=== PATIENT | female | born 1980 | race American Indian/Alaskan Native ===

== ENCOUNTER 2017-11-06 22:14 | Inpatient (IN) | payer MEDICAID ==
[2017-11-06 22:53] LABS: Hematocrit 35.4 % (30.3-42.9); Mean Corpuscular HGB Conc 34 % (30-34); Mean Corpuscular Hemoglobin 27 pg (28-32); Mean Corpuscular Volume 79 fl (79-97); Platelet Count 251 K/mm3 (140-440); Red Blood Count 4.49 M/mm3 (3.65-5.03); Red Cell Distribution Width 14.1 % (13.2-15.2)
[2017-11-06 23:01] LABS: Basophils % (Auto) 0.1 % (0.0-1.8); Lymphocytes # (Auto) 0.7 K/mm3 (1.2-5.4); Lymphocytes % (Auto) 7.1 % (13.4-35.0); Monocytes % (Auto) 10.3 % (0.0-7.3)
[2017-11-06 23:03] LABS: BUN/Creatinine Ratio 20; Blood Urea Nitrogen 14 mg/dL (7-17); Calcium 8.9 mg/dL (8.4-10.2); Hemolysis Index 0
--- NOTE | 2017-11-06 23:21 | XRay Report ---
FINAL REPORT PROCEDURE: XR CHEST 1V AP TECHNIQUE: Chest radiograph anteroposterior view. CPT 34476 HISTORY: Shortness of breath COMPARISON: No prior studies are available for comparison. FINDINGS: Heart: Normal. Mediastinum/Vessels: Normal. Lungs/Pleural space: Infiltrate in the right lower lung. No effusion or pneumothorax. Bony thorax: No acute osseous abnormality. Life support devices: None. IMPRESSION: Mild right lower lung infiltrate.
[2017-11-06] MEDS ORDERED: NACL 0.9% 1000 ML 1,000 ML IV ONE (23:31)
[2017-11-06] MEDS ORDERED: MORPHINE IV ONE (23:31)
[2017-11-06] MEDS ORDERED: ZITHROMAX 500 MG in NACL 0.9% 250ML 250 ML IV ONE (23:31)
[2017-11-07 00:39] LABS: Bilirubin,Urine SM (Negative); Blood,Urine SM (Negative); Color,Urine Amber (Yellow); Mucus,Urine 3+ /HPF
[2017-11-07 01:05] LABS: Ictotest,Urine Negative (Negative)
--- NOTE | 2017-11-07 01:23 | Cat Scan Report ---
FINAL REPORT PROCEDURE: CT ANGIO CHEST TECHNIQUE: Computerized tomographic angiography of the chest was performed after the IV injection of iodinated nonionic contrast including image processing. The image data was postprocessed using 2-dimensional multiplanar reformatted (MPR) and 3-dimensional (MIP and/or volume rendered) techniques. HISTORY: SOB, back pain, rib pain, S/P leg fracture COMPARISON: No prior studies are available for comparison. FINDINGS: Heart and pericardium: Normal. Thoracic aorta: Normal. Pulmonary vasculature: There is pulmonary arterial emboli identified in the right main pulmonary artery extending into the segmental and subsegmental branches of the upper and lower right arterial branches. Left pulmonary arterial structures opacified without emboli. No saddle embolus is identified.. Lymph nodes: No enlarged thoracic lymph nodes. Lungs: There is atelectasis with possible scattered infiltrate in the right lower and midlung. Slight atelectasis left lower lung. The central airway is patent.. Pleural space: No effusion, thickening, or pneumothorax. Musculoskeletal structures: No significant abnormality. Upper abdominal structures: No significant abnormality. IMPRESSION: Pulmonary arterial emboli identified in the right main pulmonary artery extending into the segmental and subsegmental branches of the upper lower right arterial structures. Atelectasis with possible infiltrate identified in the right lower and midlung. Slight atelectasis left lower lung. The above findings are discussed with the patient's ER physician Dr. Nagy at the time of dictation 01:15 Eastern standard time on 11/07/2017
[2017-11-07] MEDS ORDERED: HEPARIN 10,000 UNITS/10 ML IV ONE (01:39)
--- NOTE | 2017-11-07 02:16 | Emergency Department Report ---
HPI - General Chief Complaint: Dyspnea/Respdistress Time Seen by Provider: 11/06/17 23:22 - HPI HPI: Physical -[place] female presents to emergency department complaint of a 2-3 day history of some pain to the right side of the rib cage with some radiation towards the back and some shortness of breath. The patient's discomfort appears to increase with deep breathing and certain movements of her torso. Patient recently broke her left leg 2 weeks ago and has a cast on there and has been using crutches and has been nonweightbearing to the left lower extremity. She went to [facility] at that time for the leg fracture. She has a past medical history of hypertension and lupus. She has not been taking anything for her symptoms prior to presentation. She is a daily smoker. She denies any fever, nausea, vomiting, diaphoresis. ED Past Medical Hx - Past Medical History Previous Medical History?: Yes Hx Hypertension: Yes Additional medical history: Lupus - Surgical History Past Surgical History?: Yes Additional Surgical History: Tonsillectomy - Social History Smoking Status: Current Every Day Smoker - Medications Home Medications: Home Medications Medication Instructions Recorded Confirmed Last Taken Type OXcarbazepine [Oxtellar XR] 150 mg PO BID 11/07/17 11/07/17 Unknown History Ziprasidone HCl [Geodon] 80 mg PO BID 11/07/17 11/07/17 Unknown History hydrOXYZINE PAMOATE [Hydroxyzine 50 mg PO TID 11/07/17 11/07/17 Unknown History Pamoate] risperiDONE [Risperdal] 4 mg PO QHS 11/07/17 11/07/17 Unknown History traZODone [Desyrel] 100 mg PO QHS 11/07/17 11/07/17 Unknown History ED Review of Systems ROS: Stated complaint: RIGHT SIDE/RIB PAIN, ANTHONY Other details as noted in HPI Comment: All other systems reviewed and negative Constitutional: denies: chills, fever Eyes: denies: eye pain, eye discharge, vision change ENT: denies: ear pain, throat pain Respiratory: shortness of breath. denies: cough Cardiovascular: denies: palpitations, edema Gastrointestinal: denies: abdominal pain, nausea, diarrhea Genitourinary: denies: hematuria, discharge Musculoskeletal: back pain. denies: arthralgia Skin: denies: rash, lesions Neurological: denies: headache, weakness, paresthesias Physical Exam - Physical Exam Vital Signs: Vital Signs 11/06/17 11/06/17 22:25 23:00 Temperature 98.2 F Pulse Rate 120 H 126 H Respiratory 24 22 Rate Blood Pressure 128/91 Blood Pressure 140/78 [Left] O2 Sat by Pulse 96 94 Oximetry Physical Exam: GENERAL: The patient is well-developed well-nourished. HENT: Normocephalic. Atraumatic. Patient has moist mucous membranes. EYES: Extraocular motions are intact. Pupils equal reactive to light bilaterally. NECK: Supple. Trachea is midline. CHEST/LUNGS: Clear to auscultation. There is no respiratory distress noted. The right-sided rib pain is not reproducible to palpation. HEART/CARDIOVASCULAR: Regular. There is moderate tachycardia. There is no murmur. ABDOMEN: Abdomen is soft, nontender. Patient has normal bowel sounds. There is no abdominal distention. SKIN: Skin is warm and dry. NEURO: The patient is awake, alert, and oriented. The patient is cooperative. The patient has no focal neurologic deficits. The patient has normal speech.. MUSCULOSKELETAL: The left lower leg is currently in a cast. The other 3 extremities are nontender to palpation and do not have any obvious deformities. ED Course Vital Signs 11/06/17 11/06/17 22:25 23:00 Temperature 98.2 F Pulse Rate 120 H 126 H Respiratory 24 22 Rate Blood Pressure 128/91 Blood Pressure 140/78 [Left] O2 Sat by Pulse 96 94 Oximetry ED Medical Decision Making - Lab Data Result diagrams: 11/06/17 22:33 11/06/17 22:33 - EKG Data -: EKG Interpreted by Me EKG shows normal: sinus rhythm, axis, intervals, QRS complexes, ST-T waves Rate: tachycardia (123 bpm) - EKG Data When compared to previous EKG there are: previous EKG unavailable Interpretation: other (sinus tachycardia) - Radiology Data Radiology results: report reviewed, image reviewed interpreted by me: Chest x-ray does not show any acute process. There are no pleural effusions, obvious pneumonia and there is no pneumothorax. PROCEDURE: CT ANGIO CHEST TECHNIQUE: Computerized tomographic angiography of the chest was performed after the IV injection of iodinated nonionic contrast including image processing. The image data was postprocessed using 2-dimensional multiplanar reformatted (MPR) and 3-dimensional (MIP and/or volume rendered) techniques. HISTORY: SOB, back pain, rib pain, S/P leg fracture COMPARISON: No prior studies are available for comparison. FINDINGS: Heart and pericardium: Normal. Thoracic aorta: Normal. Pulmonary vasculature: There is pulmonary arterial emboli identified in the right main pulmonary artery extending into the segmental and subsegmental branches of the upper and lower right arterial branches. Left pulmonary arterial structures opacified without emboli. No saddle embolus is identified.. Lymph nodes: No enlarged thoracic lymph nodes. Lungs: There is atelectasis with possible scattered infiltrate in the right lower and midlung. Slight atelectasis left lower lung. The central airway is patent.. Pleural space: No effusion, thickening, or pneumothorax. Musculoskeletal structures: No significant abnormality. Upper abdominal structures: No significant abnormality. IMPRESSION: Pulmonary arterial emboli identified in the right main pulmonary artery extending into the segmental and subsegmental branches of the upper lower right arterial structures. Atelectasis with possible infiltrate identified in the right lower and midlung. Slight atelectasis left lower lung. The above findings are discussed with the patient's ER physician Dr. Nagy at the time of dictation 01:15 Eastern standard time on 11/07/2017 Transcribed By: [facility] Dictated By: SNEHAL ALICEA MD Electronically Authenticated By: SNEHAL ALICEA MD Signed Date/Time: 11/07/17 0118 - Medical Decision Making Patient presents with some right-sided rib pain, back pain, shortness of breath and presents with some tachycardia on the past few days. The patient is nonweightbearing to the left lower extremity and is in a cast secondary to a leg fracture. With her symptoms and the recent fracture, the concern I had was for a pulmonary embolism. blood work was unremarkable. A CT angiogram of the chest was done that shows a right main pulmonary artery embolism that extends into the segmental and subsegmental branches. Patient placed on a heparin drip and will be admitted to hospital for further evaluation and treatment. She was accepted for admission by the hospitalist, Dr. Dahl. - Differential Diagnosis costochondritis, pulmonary embolism, pneumonia Critical Care Time: No Critical care attestation.: If time is entered above; I have spent that time in minutes in the direct care of this critically ill patient, excluding procedure time. ED Disposition Clinical Impression: Pulmonary embolism Qualifiers: Pulmonary embolism type: other Chronicity: acute Acute cor pulmonale presence: without acute cor pulmonale Qualified Code(s): I26.99 - Other pulmonary embolism without acute cor pulmonale UTI (urinary tract infection) Qualifiers: Urinary tract infection type: acute cystitis Hematuria presence: with hematuria Qualified Code(s): N30.01 - Acute cystitis with hematuria Disposition: OP ADMIT IP TO THIS HOSP Is pt being admited?: Yes Condition: Fair Referrals: PRIMARY CAREMD [Primary Care Provider] - 3-5 Days Time of Disposition: 02:16
[2017-11-07] MEDS ORDERED: ZOFRAN IV PRN (02:24)
[2017-11-07] MEDS ORDERED: TYLENOL PO PRN (02:24)
[2017-11-07] MEDS ORDERED: SODIUM CHLORIDE FLUSH SYRINGE 10 ML IV PRN (02:24)
[2017-11-07] MEDS ORDERED: PROVENTIL IH PRN (02:24)
--- NOTE | 2017-11-07 02:27 | History and Physical Report ---
History of Present Illness Date of examination: 11/07/17 History of present illness: 37-year-old woman history of lupus, hypertension, status post fracture of the left foot 2 weeks ago comes emergency room with complaints of pain in her right ribs and back. These symptoms started 3 days ago, she described the pain as sharp, worse with movement and when she tries to take a deep breath, intermittent, for a few seconds, intensity 7/10, no radiation. Complaining of nonproductive cough Review of systems Constitutional: no weight loss, chills, fever Ears, eyes, nose, mouth and throat: no nasal congestion, no nasal discharge, no sinus pressure, no vision change, no red eye. Neck: No neck pain or rigidity. Cardiovascular: no chest pain, palpitations Respiratory:+ cough, shortness of breath Gastrointestinal: no abdominal pain hematochezia Genitourinary : no frequency , no hematuria Musculoskeletal: no joint swelling or muscle ache Integumentary: no rash, no pruritis Neurological: no parathesias, no numbness, no focal weakness Endocrine: no cold or heat intolerance, no polyuria or polydipsia Hematologic/Lymphatic: no easy bruising, no easy bleeding, no gland swelling Allergic/Immunologic: no urticaria, no angioedema. PAST MEDICAL HISTORY Lupus, hypertension PAST SURGICAL HISTORY: None SOCIAL HISTORY: Smoked 2 cigarettes a day, daily marijuana use, alcohol use FAMILY HISTORY: Hypertension Medications and Allergies Allergies Allergy/AdvReac Type Severity Reaction Status Date / Time amoxicillin Allergy Itching Verified 11/06/17 22:17 Penicillins Allergy Itching Verified 11/06/17 22:17 Home Medications Medication Instructions Recorded Confirmed Last Taken Type OXcarbazepine [Oxtellar XR] 150 mg PO BID 11/07/17 11/07/17 Unknown History Ziprasidone HCl [Geodon] 80 mg PO BID 11/07/17 11/07/17 Unknown History hydrOXYZINE PAMOATE [Hydroxyzine 50 mg PO TID 11/07/17 11/07/17 Unknown History Pamoate] risperiDONE [Risperdal] 4 mg PO QHS 11/07/17 11/07/17 Unknown History traZODone [Desyrel] 100 mg PO QHS 11/07/17 11/07/17 Unknown History Active Meds: Active Medications Heparin Sodium/Sodium Chloride (Heparin/ 0.45% Nacl-25,000 Unit/500 Ml) 25,000 unit in 500 mls @ 29 mls/hr IV TITR MARY; Protocol Exam - Physical Exam Narrative exam: Gen. appearance: Patient lying in bed, no apparent distress HEENT: Normocephalic, atraumatic, pupils equally round and reactive to light, eyes are , extraocular movement intact, and no sclericterus,. No JVD or thyromegaly or nodule,neck supple, no carotid bruit ,mucous membranes moist, no exudate or erythema Heart: S1, S2, regular rate and rhythm Lungs: Clear bilaterally, breathing comfortable Abdomen: Left leg in a splint, Positive bowel sounds, non-tender, nondistended, no organomegaly Extremity:no edema cyanosis, clubbing Skin: no rash, dry, warm Neuro: Oriented 3, cranial nerves II-12 intact, speech is fluent, motor and sensory intact - Constitutional Vitals: Temp Pulse Resp BP Pulse Ox 98.2 F 126 H 22 128/91 94 11/06/17 22:25 11/06/17 23:00 11/06/17 23:00 11/06/17 23:00 11/06/17 23:00 Results - Labs CBC & Chem 7: 11/06/17 22:33 11/06/17 22:33 Labs: Abnormal lab results 11/06/17 11/06/17 11/06/17 Range/Units 22:33 22:33 23:02 MCH 27 L (28-32) pg Lymph % (Auto) 7.1 L (13.4-35.0) % [place] % (Auto) 10.3 H (0.0-7.3) % Lymph # 0.7 L (1.2-5.4) K/mm3 [place] # 1.0 H (0.0-0.8) K/mm3 Seg Neutrophils % 82.5 H (40.0-70.0) % Seg Neutrophils # 7.8 H (1.8-7.7) K/mm3 Sodium 134 L (137-145) mmol/L Chloride 91.8 L (98-107) mmol/L Glucose 104 H (65-100) mg/dL Ur Specific [place] 1.032 H (1.003-1.030) Urine WBC (Auto) 29.0 H (0.0-6.0) /HPF - Imaging and Cardiology EKG: image reviewed Chest x-ray: report reviewed CT scan - chest: report reviewed Assessment and Plan Assessment Acute pulmonary emboli Pneumonia UTI Left foot fracture Plan Admit to medicine Continue heparin drip, monitor serial hemoglobin, PT/INR Start IV Levaquin, follow cultures, check Doppler of lower extremity DVT prophylaxis, IV morphine
[2017-11-07] MEDS: HEPARIN/ 0.45% NACL-25,000 UNIT/500 ML 25,000 UNIT/500 ML BAG IV SCH ×2 (02:30→23:06)
[2017-11-07 02:34] LABS: INR 1.14 (0.87-1.13); Partial Thromboplastin Time 32.9 Sec. (24.2-36.6)
[2017-11-07] MEDS: MORPHINE IV PRN ×2 (05:14→10:35)
[2017-11-07] MEDS: LEVAQUIN 750MG/150ML 750 MG/150 ML BAG IV SCH ×2 (05:17→10:35)
[2017-11-07] MEDS: SODIUM CHLORIDE FLUSH SYRINGE 10 ML IV SCH ×2 (10:36→23:18)
[2017-11-07] MEDS ORDERED: PHENERGAN PR PRN (16:43)
[2017-11-07] MEDS: DILAUDID IV PRN ×2 (18:19→23:07)
[2017-11-07] MEDS: ZOFRAN IV PRN ×2 (18:20→23:17)
[2017-11-07] MEDS ORDERED: DESYREL PO ONE (22:32)
[2017-11-07] MEDS ORDERED: RESTORIL PO NR (23:00)
[2017-11-08] MEDS: DILAUDID IV PRN ×3 (05:10→20:35)
[2017-11-08 05:40] LABS: Basophils % (Auto) 0.1 % (0.0-1.8); Hematocrit 34.8 % (30.3-42.9); Hemoglobin 11.3 gm/dl (10.1-14.3); Lymphocytes % (Auto) 6.4 % (13.4-35.0); Mean Corpuscular HGB Conc 33 % (30-34); Mean Corpuscular Hemoglobin 26 pg (28-32); Mean Corpuscular Volume 80 fl (79-97); Monocytes # (Auto) 1.7 K/mm3 (0.0-0.8); Monocytes % (Auto) 10.4 % (0.0-7.3); Platelet Count 315 K/mm3 (140-440); Red Blood Count 4.35 M/mm3 (3.65-5.03); Red Cell Distribution Width 14.5 % (13.2-15.2)
[2017-11-08 06:02] LABS: BUN/Creatinine Ratio 19; Blood Urea Nitrogen 13 mg/dL (7-17); Calcium 9.2 mg/dL (8.4-10.2); Hemolysis Index 4
[2017-11-08] MEDS ORDERED: HEPARIN IV ONE (06:37)
[2017-11-08] MEDS ORDERED: HEPARIN 10,000 UNITS/10 ML IV NR (07:00)
[2017-11-08] MEDS: LEVAQUIN 750MG/150ML 750 MG/150 ML BAG IV SCH (10:23)
--- NOTE | 2017-11-08 11:35 | Progress Note ---
Assessment and Plan Assessment and plan: 37-year-old woman history of lupus, hypertension, status post fracture of the left foot 2 weeks ago comes emergency room with complaints of pain in her right ribs and back. These symptoms started 3 days ago, she described the pain as sharp, worse with movement and when she tries to take a deep breath, intermittent, for a few seconds, intensity 7/10, no radiation. Complaining of nonproductive cough CTA chest Pulmonary arterial emboli identified in the right main pulmonary artery extending into the segmental and subsegmental branches of the upper lower right arterial structures. VL LE dopplers No evidence of acute or chronic deep venous thrombosis in either lower extremity. A technical limitation was noted in the left lower extremity. There is a cast below the left knee which obscures visualization of the distal left lower extremity. Acute pulmonary emboli Pneumonia UTI Left foot fracture SLE flare Plan continue anticoagulant, Abx, LLE already splinted -start steroids, as suspect sle flare Needs to establish with an outpatient doffer History Interval history: Review of systems Constitutional: No fevers, no malaise, no joint pains CVS: c.o pleuritc CP which is in her ribs, no orthpnea, no pedal edema, GI: No abdominal pain, no diarrhea, no vomiting, no constipation Respiratory: mild sob, no wheezing, no coughing Hospitalist Physical - Physical exam Narrative exam: General.: Appears well, no distress, nontoxic HEENT: Moist mucous membranes, extraocular muscles intact, no lymphadenopathy Neck: supple Cardiac: S1-S2 heard Lungs: clear to auscultation bilaterally Abdomen: soft , nontender, nondistended, bowel sounds positive Extremities: no edema clubbing or cyanosis Skin: no rash or lesions Neurologic: no gross focal deficits Psych: appropriate behavior, appropriate mood, corporative, judgment intact - Constitutional Vitals: Temp Pulse Resp BP Pulse Ox 100.1 F H 133 H 18 153/93 78 L 11/08/17 07:33 11/08/17 07:33 11/08/17 09:20 11/08/17 07:33 11/08/17 07:33 Results - Labs CBC & Chem 7: 11/08/17 05:01 11/08/17 05:01 Labs: Laboratory Last Values WBC 16.1 K/mm3 (4.5-11.0) H 11/08/17 05:01 RBC 4.35 M/mm3 (3.65-5.03) 11/08/17 05:01 Hgb 11.3 gm/dl (10.1-14.3) 11/08/17 05:01 Hct 34.8 % (30.3-42.9) 11/08/17 05:01 MCV 80 fl (79-97) 11/08/17 05:01 MCH 26 pg (28-32) L 11/08/17 05:01 MCHC 33 % (30-34) 11/08/17 05:01 RDW 14.5 % (13.2-15.2) 11/08/17 05:01 Plt Count 315 K/mm3 (140-440) 11/08/17 05:01 Lymph % (Auto) 6.4 % (13.4-35.0) L 11/08/17 05:01 [place] % (Auto) 10.4 % (0.0-7.3) H 11/08/17 05:01 Eos % (Auto) 0.0 % (0.0-4.3) 11/08/17 05:01 Baso % (Auto) 0.1 % (0.0-1.8) 11/08/17 05:01 Lymph # 1.0 K/mm3 (1.2-5.4) L 11/08/17 05:01 [place] # 1.7 K/mm3 (0.0-0.8) H 11/08/17 05:01 Eos # 0.0 K/mm3 (0.0-0.4) 11/08/17 05:01 Baso # 0.0 K/mm3 (0.0-0.1) 11/08/17 05:01 Seg Neutrophils % 83.1 % (40.0-70.0) H 11/08/17 05:01 Seg Neutrophils # 13.4 K/mm3 (1.8-7.7) H 11/08/17 05:01 PT 15.2 Sec. (12.2-14.9) H 11/07/17 01:54 INR 1.14 (0.87-1.13) H 11/07/17 01:54 APTT 32.9 Sec. (24.2-36.6) 11/07/17 01:54 Heparin Anti-Xa Level < 0.10 U.I./ml (0.3-0.7) L 11/08/17 05:01 Sodium 138 mmol/L (137-145) 11/08/17 05:01 Potassium 4.0 mmol/L (3.6-5.0) 11/08/17 05:01 Chloride 94.9 mmol/L (98-107) L 11/08/17 05:01 Carbon Dioxide 28 mmol/L (22-30) 11/08/17 05:01 Anion Gap 19 mmol/L 11/08/17 05:01 BUN 13 mg/dL (7-17) 11/08/17 05:01 Creatinine 0.7 mg/dL (0.7-1.2) 11/08/17 05:01 Estimated GFR > 60 ml/min 11/08/17 05:01 BUN/Creatinine Ratio 19 % 11/08/17 05:01 Glucose 100 mg/dL (65-100) 11/08/17 05:01 Calcium 9.2 mg/dL (8.4-10.2) 11/08/17 05:01 Troponin T < 0.010 ng/mL (0.00-0.029) 11/06/17 22:33 HCG, Qual Negative (Negative) 11/06/17 22:33 Urine Color [place] (Yellow) 11/06/17 23:02 Urine Turbidity Hazy (Clear) 11/06/17 23:02 Urine pH 5.0 (5.0-7.0) 11/06/17 23:02 Ur Specific [place] 1.032 (1.003-1.030) H 11/06/17 23:02 Urine Protein 100 mg/dl mg/dL (Negative) 11/06/17 23:02 Urine Glucose (UA) Neg mg/dL (Negative) 11/06/17 23:02 Urine Ketones 20 mg/dL (Negative) 11/06/17 23:02 Urine Blood Sm (Negative) 11/06/17 23:02 Urine Nitrite Neg (Negative) 11/06/17 23:02 Urine Bilirubin Sm (Negative) 11/06/17 23:02 Urine Ictotest Negative (Negative) 11/06/17 23:02 Urine Urobilinogen 4.0 mg/dL (<2.0) 11/06/17 23:02 Ur Leukocyte Esterase Sm (Negative) 11/06/17 23:02 Urine WBC (Auto) 29.0 /HPF (0.0-6.0) H 11/06/17 23:02 Urine RBC (Auto) 23.0 /HPF (0.0-6.0) 11/06/17 23:02 U Epithel Cells (Auto) 1.0 /HPF (0-13.0) 11/06/17 23:02 Urine Mucus 3+ /HPF 11/06/17 23:02
--- NOTE | 2017-11-08 12:00 | Vascular Lab Report ---
LOWER EXTREMITY VENOUS DUPLEX: REASON FOR EXAM: Deep venous thrombosis. COMMENTS ON THE RIGHT: All veins visualized are freely compressible without evidence of internal echogenicity. Flow is spontaneous and phasic throughout. COMMENTS ON THE LEFT: All veins visualized are freely compressible without evidence of internal echogenicity. Flow is spontaneous and phasic throughout. Been below the knee area is obscured by a cast. IMPRESSION: No evidence of acute or chronic deep venous thrombosis in either lower extremity. A technical limitation was noted in the left lower extremity. There is a cast below the left knee which obscures visualization of the distal left lower extremity.
[2017-11-08] MEDS: PROTONIX PO SCH (15:59)
[2017-11-08] MEDS: ELIQUIS PO SCH ×2 (15:59→22:13)
[2017-11-08] MEDS: SODIUM CHLORIDE FLUSH SYRINGE 10 ML IV SCH ×2 (16:00→22:14)
[2017-11-08] MEDS: REGLAN IV PRN (20:35)
[2017-11-08] MEDS: RESTORIL PO PRN (23:40)
[2017-11-09] MEDS: DILAUDID IV PRN ×4 (06:01→23:59)
[2017-11-09 06:13] LABS: Hemoglobin 10.8 gm/dl (10.1-14.3)
[2017-11-09] MEDS: ELIQUIS PO SCH ×2 (10:34→21:31)
[2017-11-09] MEDS: REGLAN IV PRN (10:35)
[2017-11-09] MEDS: PROTONIX PO SCH (10:37)
[2017-11-09] MEDS: LEVAQUIN 750MG/150ML 750 MG/150 ML BAG IV SCH (10:37)
[2017-11-09] MEDS: SODIUM CHLORIDE FLUSH SYRINGE 10 ML IV SCH ×2 (10:38→21:31)
[2017-11-09] MEDS: GUAIFENESIN DM SYRUP PO PRN (18:41)
[2017-11-09] MEDS: ZOFRAN IV PRN ×2 (18:43→23:59)
--- NOTE | 2017-11-09 19:58 | Progress Note ---
Assessment and Plan Assessment and plan: 37-year-old woman history of lupus, hypertension, status post fracture of the left foot 2 weeks ago comes emergency room with complaints of pain in her right ribs and back. These symptoms started 3 days ago, she described the pain as sharp, worse with movement and when she tries to take a deep breath, intermittent, for a few seconds, intensity 7/10, no radiation. Complaining of nonproductive cough CTA chest Pulmonary arterial emboli identified in the right main pulmonary artery extending into the segmental and subsegmental branches of the upper lower right arterial structures. VL LE dopplers No evidence of acute or chronic deep venous thrombosis in either lower extremity. A technical limitation was noted in the left lower extremity. There is a cast below the left knee which obscures visualization of the distal left lower extremity. Acute pulmonary emboli Pneumonia UTI Left foot fracture SLE flare Plan continue anticoagulant, Abx, LLE already splinted -start steroids, as suspect sle flare Needs to establish with an outpatient dishwasher busser History Interval history: Review of systems Constitutional: No fevers, no malaise, no joint pains CVS: c.o pleuritc CP which is in her ribs, no orthpnea, no pedal edema, GI: No abdominal pain, no diarrhea, no vomiting, no constipation Respiratory: mild sob, no wheezing, no coughing Hospitalist Physical - Physical exam Narrative exam: General.: Appears well, no distress, nontoxic HEENT: Moist mucous membranes, extraocular muscles intact, no lymphadenopathy Neck: supple Cardiac: S1-S2 heard Lungs: clear to auscultation bilaterally Abdomen: soft , nontender, nondistended, bowel sounds positive Extremities: no edema clubbing or cyanosis Skin: no rash or lesions Neurologic: no gross focal deficits Psych: appropriate behavior, appropriate mood, corporative, judgment intact - Constitutional Vitals: Temp Pulse Resp BP Pulse Ox 97.3 F L 106 H 20 117/89 96 11/09/17 16:00 11/09/17 17:04 11/09/17 17:04 11/09/17 17:04 11/09/17 17:04 Results - Labs CBC & Chem 7: 11/09/17 05:09 11/08/17 05:01 Labs: Laboratory Last Values WBC 16.1 K/mm3 (4.5-11.0) H 11/08/17 05:01 RBC 4.35 M/mm3 (3.65-5.03) 11/08/17 05:01 Hgb 10.8 gm/dl (10.1-14.3) 11/09/17 05:09 Hct 33.0 % (30.3-42.9) 11/09/17 05:09 MCV 80 fl (79-97) 11/08/17 05:01 MCH 26 pg (28-32) L 11/08/17 05:01 MCHC 33 % (30-34) 11/08/17 05:01 RDW 14.5 % (13.2-15.2) 11/08/17 05:01 Plt Count 342 K/mm3 (140-440) 11/09/17 05:09 Lymph % (Auto) 6.4 % (13.4-35.0) L 11/08/17 05:01 [place] % (Auto) 10.4 % (0.0-7.3) H 11/08/17 05:01 Eos % (Auto) 0.0 % (0.0-4.3) 11/08/17 05:01 Baso % (Auto) 0.1 % (0.0-1.8) 11/08/17 05:01 Lymph # 1.0 K/mm3 (1.2-5.4) L 11/08/17 05:01 [place] # 1.7 K/mm3 (0.0-0.8) H 11/08/17 05:01 Eos # 0.0 K/mm3 (0.0-0.4) 11/08/17 05:01 Baso # 0.0 K/mm3 (0.0-0.1) 11/08/17 05:01 Seg Neutrophils % 83.1 % (40.0-70.0) H 11/08/17 05:01 Seg Neutrophils # 13.4 K/mm3 (1.8-7.7) H 11/08/17 05:01 PT 15.2 Sec. (12.2-14.9) H 11/07/17 01:54 INR 1.14 (0.87-1.13) H 11/07/17 01:54 APTT 32.9 Sec. (24.2-36.6) 11/07/17 01:54 Heparin Anti-Xa Level 0.32 U.I./ml (0.3-0.7) 11/08/17 13:13 Sodium 138 mmol/L (137-145) 11/08/17 05:01 Potassium 4.0 mmol/L (3.6-5.0) 11/08/17 05:01 Chloride 94.9 mmol/L (98-107) L 11/08/17 05:01 Carbon Dioxide 28 mmol/L (22-30) 11/08/17 05:01 Anion Gap 19 mmol/L 11/08/17 05:01 BUN 13 mg/dL (7-17) 11/08/17 05:01 Creatinine 0.7 mg/dL (0.7-1.2) 11/08/17 05:01 Estimated GFR > 60 ml/min 11/08/17 05:01 BUN/Creatinine Ratio 19 % 11/08/17 05:01 Glucose 100 mg/dL (65-100) 11/08/17 05:01 Calcium 9.2 mg/dL (8.4-10.2) 11/08/17 05:01 Troponin T < 0.010 ng/mL (0.00-0.029) 11/06/17 22:33 HCG, Qual Negative (Negative) 11/06/17 22:33 Urine Color [place] (Yellow) 11/06/17 23:02 Urine Turbidity Hazy (Clear) 11/06/17 23:02 Urine pH 5.0 (5.0-7.0) 11/06/17 23:02 Ur Specific [place] 1.032 (1.003-1.030) H 11/06/17 23:02 Urine Protein 100 mg/dl mg/dL (Negative) 11/06/17 23:02 Urine Glucose (UA) Neg mg/dL (Negative) 11/06/17 23:02 Urine Ketones 20 mg/dL (Negative) 11/06/17 23:02 Urine Blood Sm (Negative) 11/06/17 23:02 Urine Nitrite Neg (Negative) 11/06/17 23:02 Urine Bilirubin Sm (Negative) 11/06/17 23:02 Urine Ictotest Negative (Negative) 11/06/17 23:02 Urine Urobilinogen 4.0 mg/dL (<2.0) 11/06/17 23:02 Ur Leukocyte Esterase Sm (Negative) 11/06/17 23:02 Urine WBC (Auto) 29.0 /HPF (0.0-6.0) H 11/06/17 23:02 Urine RBC (Auto) 23.0 /HPF (0.0-6.0) 11/06/17 23:02 U Epithel Cells (Auto) 1.0 /HPF (0-13.0) 11/06/17 23:02 Urine Mucus 3+ /HPF 11/06/17 23:02
[2017-11-09] MEDS: RESTORIL PO PRN (23:59)
[2017-11-10] MEDS: DILAUDID IV PRN ×2 (03:36→09:11)
[2017-11-10] MEDS: GUAIFENESIN DM SYRUP PO PRN (06:19)
[2017-11-10] MEDS: ZOFRAN IV PRN (06:20)
[2017-11-10 06:43] VITALS: BP 114/72
--- NOTE | 2017-11-10 08:25 | Discharge Summary ---
Providers - Providers Date of Admission: 11/07/17 02:24 Attending physician: KAUSHIK LAMA MD Primary care physician: LIBORIO LOCO Hospitalization Condition: Fair Hospital course: 37-year-old man with a history of SLE presented with chest pain and shortness of breath. She was found to have pulmonary embolism. She was treated with heparin drip and then transitioned to oral medications. She received oxygen therapy, but was weaned off oxygen to room air. She was treated with steroids for lupus flare and is being discharged on a taper. She is advised to establish with a childbirth and infant care teacher and she was giving a phone number for Dr. Pinzon Diagnoses Acute pulmonary embolism Acute hypoxic respiratory failure SLE flare Disposition: TO HOME OR SELFCARE Time spent for discharge: 33 minutes Core Measure Documentation - Palliative Care Palliative Care/ Comfort Measures: Not Applicable - Core Measures Any of the following diagnoses?: none Exam - Constitutional Vitals: Temp Pulse Resp BP Pulse Ox 97.4 F L 98 H 18 114/72 93 11/10/17 05:11/10/17 05:11/10/17 05:09 11/10/17 05:11/10/17 05:09 General appearance: Present: no acute distress, well-nourished - EENT Eyes: Present: PERRL ENT: hearing intact, clear oral mucosa - Neck Neck: Present: supple, normal ROM - Respiratory Respiratory effort: normal Respiratory: bilateral: CTA - Cardiovascular Heart Sounds: Present: S1 & S2. Absent: rub, click - Extremities Extremities: pulses symmetrical, No edema Peripheral Pulses: within normal limits - Abdominal General gastrointestinal: Present: soft, non-tender, non-distended, normal bowel sounds Female genitourinary: Present: normal - Integumentary Integumentary: Present: clear, warm, dry - Musculoskeletal Musculoskeletal: gait normal, strength equal bilaterally - Psychiatric Psychiatric: appropriate mood/affect, intact judgment & insight - Neurologic Neurologic: CNII-XII intact, moves all extremities Plan Additional Instructions: Please establish care with a Tectonophysicist, Desirae Corrales pls call to set up appointment. [address] [facility]. [place], [place] [address]Kybbn: . Follow up with: PRIMARY CAREMD [Referring] - 3-5 Days
[2017-11-10] MEDS: ELIQUIS PO SCH (09:11)
[2017-11-10] MEDS: PROTONIX PO SCH (09:11)
[2017-11-10] MEDS: SODIUM CHLORIDE FLUSH SYRINGE 10 ML IV SCH (09:11)
[2017-11-10] MEDS ORDERED: PERCOCET 5/325 PO PRN (11:18)
== END 2017-11-10 13:55 | disposition home or self-care (01) | DRG 545 ==
LOC: ED 22:14 → 4A 11-07 02:24 → 3A 11-09 23:43
PROVIDERS: ADMIT Internal Medicine; ATTEND Internal Medicine
DX: M32.9 Systemic lupus erythematosus, unspecified (principal); I26.99 Other pulmonary embolism without acute cor pulmonale; J18.9 Pneumonia, unspecified organism; J96.01 Acute respiratory failure with hypoxia; N39.0 Urinary tract infection, site not specified; I10 Essential (primary) hypertension; F17.200 Nicotine dependence, unspecified, uncomplicated; F17.210 Nicotine dependence, cigarettes, uncomplicated; X58.XXXD Exposure to other specified factors, subsequent encounter; F12.90 Cannabis use, unspecified, uncomplicated; Z82.49 Family history of ischemic heart disease and other diseases of the circulatory system; Z88.1 Allergy status to other antibiotic agents; Z88.0 Allergy status to penicillin; S92.902G Unspecified fracture of left foot, subsequent encounter for fracture with delayed healing
CPT/HCPCS: 36415; 71045; 71275; 80048; 81001; 84484; 84703; 85014; 85018; 85025; 85049; 85520; 85610; 85730; 87086; 93005; 93010; 93970; 94760; 96361; 96365; 96375; J0456; J1170; J1644; J1956; J2270; J2405; J2765; J2930; J7030; J7050; Q9967

== ENCOUNTER 2018-02-08 12:07 | Emergency (ER) | payer MEDICAID ==
[2018-02-08 12:22] VITALS: BP 157/107
[2018-02-08] MEDS ORDERED: ATROVENT IH ONE (14:18)
[2018-02-08] MEDS ORDERED: PROVENTIL IH ONE (14:18)
[2018-02-08] MEDS ORDERED: DELTASONE PO ONE (14:18)
[2018-02-08] MEDS ORDERED: ULTRAM PO ONE (14:19)
--- NOTE | 2018-02-08 14:22 | Emergency Department Report ---
- General Chief Complaint: Upper Respiratory Infection Stated Complaint: CHEST PAIN/ANTHONY Time Seen by Provider: 02/08/18 13:50 Source: patient Mode of arrival: Ambulatory Limitations: No Limitations - History of Present Illness Initial Comments: 32-year-old female with one-week history of cough. Reports fever and chills. He reports just sore from coughing. States cough is productive of clear sputum , also reports body aches. Pt states has not taken anything for her symptoms MD Complaint: cough -: week(s) (1) Severity: moderate Consistency: constant Improves With: nothing Worsens With: nothing Associated Symptoms: fever, chills, myalgias, cough, chest pain (with cough), shortness of breath Treatments Prior to Arrival: none - Related Data Home Medications Medication Instructions Recorded Confirmed Last Taken Ziprasidone HCl [Geodon] 80 mg PO BID 11/07/17 11/19/17 11/18/17 hydrOXYzine pamoate [Hydroxyzine 50 mg PO TID 11/07/17 11/19/17 11/18/17 Pamoate] risperiDONE [Risperdal] 4 mg PO QHS 11/07/17 11/19/17 11/18/17 traZODone [Desyrel] 100 mg PO QHS 11/07/17 11/19/17 11/18/17 Previous Rx's Medication Instructions Recorded Last Taken Type Apixaban [Eliquis] 5 mg PO BID #70 tablet 11/23/17 Unknown Rx oxyCODONE /ACETAMINOPHEN [Percocet 1 tab PO Q6HR PRN #20 tablet 11/23/17 Unknown Rx 5/325 mg] ALBUTEROL Inhaler(NF) [VENTOLIN 1 puff IH Q4HR PRN #1 inha 02/08/18 Unknown Rx Inhaler(NF)] Dicyclomine [Bentyl] 20 mg PO QID PRN #20 tablet 02/08/18 Unknown Rx predniSONE [Prednisone] 50 mg PO DAILY #5 tablet 02/08/18 Unknown Rx Allergies Allergy/AdvReac Type Severity Reaction Status Date / Time amoxicillin Allergy Itching Verified 11/06/17 22:17 Penicillins Allergy Itching Verified 11/06/17 22:17 ED Review of Systems ROS: Stated complaint: CHEST PAIN/ANTHONY Other details as noted in HPI Comment: All other systems reviewed and negative Constitutional: chills, fever Respiratory: cough, wheezing Cardiovascular: chest pain (with cough) Gastrointestinal: denies: nausea, vomiting ED Past Medical Hx - Past Medical History Previous Medical History?: Yes Hx Hypertension: Yes Hx Pulmonary Embolism: Yes Hx Psychiatric Treatment: Yes (bipolar, schizophrenia and depression) Additional medical history: Lupus, PE,pneumonia - Surgical History Past Surgical History?: Yes Additional Surgical History: Tonsillectomy. - Social History Smoking Status: Current Every Day Smoker Substance Use Type: Marijuana - Medications Home Medications: Home Medications Medication Instructions Recorded Confirmed Last Taken Type Ziprasidone HCl [Geodon] 80 mg PO BID 11/07/17 11/19/17 11/18/17 History hydrOXYzine pamoate [Hydroxyzine 50 mg PO TID 11/07/17 11/19/17 11/18/17 History Pamoate] risperiDONE [Risperdal] 4 mg PO QHS 11/07/17 11/19/17 11/18/17 History traZODone [Desyrel] 100 mg PO QHS 11/07/17 11/19/17 11/18/17 History Apixaban [Eliquis] 5 mg PO BID #70 tablet 11/23/17 Unknown Rx oxyCODONE /ACETAMINOPHEN [Percocet 1 tab PO Q6HR PRN #20 tablet 11/23/17 Unknown Rx 5/325 mg] ALBUTEROL Inhaler(NF) [VENTOLIN 1 puff IH Q4HR PRN #1 inha 02/08/18 Unknown Rx Inhaler(NF)] Dicyclomine [Bentyl] 20 mg PO QID PRN #20 tablet 02/08/18 Unknown Rx predniSONE [Prednisone] 50 mg PO DAILY #5 tablet 02/08/18 Unknown Rx ED Physical Exam - General Limitations: No Limitations General appearance: alert, in no apparent distress - Head Head exam: Present: atraumatic, normocephalic - Eye Eye exam: Present: normal appearance - Neck Neck exam: Present: normal inspection - Respiratory Respiratory exam: Present: wheezes, other (patient actively coughing on exam). Absent: respiratory distress - Cardiovascular Cardiovascular Exam: Present: normal rhythm, tachycardia - GI/Abdominal GI/Abdominal exam: Present: soft. Absent: tenderness - Extremities Exam Extremities exam: Present: normal inspection - Neurological Exam Neurological exam: Present: alert, oriented X3 - Psychiatric Psychiatric exam: Present: normal affect, normal mood - Skin Skin exam: Present: warm, dry, intact, normal color. Absent: rash ED Course Vital Signs 02/08/18 02/08/18 12:19 14:29 Temperature 98.3 F Pulse Rate 101 H Respiratory 18 18 Rate Blood Pressure 157/107 O2 Sat by Pulse 95 Oximetry - Reevaluation(s) Reevaluation #1: 02/08/18 15:38 Pt feeling better. Wheezing improved with neb treatment. ED Medical Decision Making - Radiology Data Radiology results: report reviewed - Medical Decision Making 37-year-old female with bronchitis. Chest x-ray negative for any acute findings. Wheezing improved following treatment. No respiratory distress. We will discharge at this time with prescription for prednisone, albuterol, Tessalon Perles. Advised outpatient follow-up. Patient given return precautions - Differential Diagnosis pneumonia, bronchitis, URI Critical care attestation.: If time is entered above; I have spent that time in minutes in the direct care of this critically ill patient, excluding procedure time. ED Disposition Clinical Impression: Bronchitis Disposition: DC- TO HOME OR SELFCARE Is pt being admited?: No Condition: Stable Instructions: Acute Bronchitis (ED) Prescriptions: ALBUTEROL Inhaler(NF) [VENTOLIN Inhaler(NF)] 1 puff IH Q4HR PRN #1 inha PRN Reason: Wheezing Dicyclomine [Bentyl] 20 mg PO QID PRN #20 tablet PRN Reason: abdominal pain predniSONE [Prednisone] 50 mg PO DAILY #5 tablet Referrals: PRIMARY CARE, [Primary Care Provider] - 3-5 Days Time of Disposition: 15:40
--- NOTE | 2018-02-08 15:24 | XRay Report ---
FINAL REPORT PROCEDURE: PA and lateral chest x-ray TECHNIQUE: PA and lateral views were obtained. HISTORY: cough COMPARISON: Prior chest x-ray 11/06/2017 FINDINGS: Heart size and pulmonary vasculature appear normal. Lungs are clear. No infiltrates masses or effusions are identified. No evidence of pulmonary edema. Portion of the upper abdomen is visualize which shows the presence of an inferior vena cava filter. IMPRESSION: No evidence of acute cardiac or pulmonary process. Portion of an inferior vena cava filter is partially visualized.
== END 2018-02-08 15:47 | disposition home or self-care (01) ==
LOC: ED 12:07
DX: J40 Bronchitis, not specified as acute or chronic (principal); I10 Essential (primary) hypertension; F31.9 Bipolar disorder, unspecified; F32.9 Major depressive disorder, single episode, unspecified; F20.9 Schizophrenia, unspecified; Z86.711 Personal history of pulmonary embolism; Z88.0 Allergy status to penicillin; Z88.1 Allergy status to other antibiotic agents
CPT/HCPCS: 71046; 94640; 99283; J7512